=== PATIENT | female | born 1995 | race Asian ===

== ENCOUNTER 2018-09-03 12:25 | Day surgery (SDC) | payer BC ==
[~2018-09-03 12:25] MED LIST: Dexamethasone 20 MG/5 ML VIAL ONE; ISOVUE-370 76%-LOCM 1 ML ONE; Lidocaine 1% PF 5 ML VIAL ONE; Ondansetron PF 4 MG/2 ML Vial ONE; PROPOFOL 200 MG/20 ML VIAL ONE
[2018-09-03 13:02] LABS: Calc. Creatinine Clearance 0 mL/min (70-130); Estimated GFR-MDRD Greater than 90
[2018-09-03] MEDS ORDERED: Oxymetazoline HCl 0.05% ( 15 ML ) ONE (15:09)
--- NOTE | 2018-09-03 15:13 | CT ---
CT SINUSES WITH AND WITHOUT CONTRAST: Date: 09/03/18 HISTORY: Pre op scan Multiple axial tomograms obtained with multiplanar reconstruction pre and post IV contrast administra tion. FINDINGS: There is a soft tissue mass density which involves the inferior turbinate on the left. There is evide nce of mild increased sclerosis and irregularity of the bony portion of this inferior turbinate. Post contrast images show a focus of asymmetric enhancement along the medial aspect of this left inferior turbinate. There are faint calcific densities seen inferior aspect of this soft tissue density in the left nasal cavity. The paranasal sinuses are well aerated. No other evidence of mucosal mass or stuart a. IMPRESSION: Soft tissue mass involving the left inferior turbinate. Some asymmetric enhancement is seen along the medial aspect of this mass density. POS: C
[2018-09-03] MEDS ORDERED: Sodium Chloride 0.9% 10 ML ONE ×2 (15:54→16:46)
[2018-09-03] MEDS ORDERED: EPINEPHrine 1 MG/ML AMP ONE ×2 (15:54→16:46)
[2018-09-03] MEDS ORDERED: Lidocaine 1% w/Epinephrine 1:100K 20 ML VIAL ONE (15:54)
[2018-09-03] MEDS ORDERED: Fentanyl 100 MCG/2 ML VIAL ONE (16:03)
[2018-09-03] MEDS ORDERED: Midazolam HCl 2 mg/2 ml Vial ONE (16:20)
--- NOTE | 2018-09-04 11:24 | OP ---
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 PROCEDURES PERFORMED: 1. Left nasal endoscopy with control of epistaxis with anterior packing. 2. Left nasal endoscopy with destruction of mass. PROCEDURE IN DETAIL: After consent was obtained, the patient was identified and brought to the operating room and placed on the operating room table in supine position. General laryngeal mask anesthesia was obtained. The patient was positioned for surgery. The nose was decongested with topical adrenaline applied on cotton balls. We then removed the adrenaline and injected the inferior turbinates with 1% lidocaine with 1:100,000 epinephrine. 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 This was cauterized with the bipolar and then Gelfoam was used to pack in that area. We used bipolar cautery to cauterize all 2 or 3 places on the septal mucosa and 1 in the inferior floor of the nose. The patient was then awakened, extubated, and taken to the recovery room in stable condition prior to discharge home. Job ID: [id number]
== END 2018-09-03 18:45 | disposition home or self-care (01) ==
LOC: SDC 12:25
PROVIDERS: ATTEND Specialist
PROC: 093K8ZZ Control Bleeding in Nasal Mucosa and Soft Tissue, Via Natural or Artificial Opening Endoscopic (ICD-10-PCS; principal; 2018-09-03)
DX: R04.0 Epistaxis (principal); J34.89 Other specified disorders of nose and nasal sinuses; J33.9 Nasal polyp, unspecified; J30.9 Allergic rhinitis, unspecified
CPT/HCPCS: 36415; 70488; 82565; 85014; J0171; J1100; J2001; J2250; J2405; J2704; J3010; Q9966